=== PATIENT | male | born 1960 | race Caucasian/White ===

== ENCOUNTER 2017-05-05 05:05 | Inpatient (IN) ==
[2017-04-29 18:55] LABS: Appearance,Urine CLEAR; Bacteria,Urine 0 /hpf (0); Bilirubin,Urine NEG (NEG); Color,Urine STRAW; Glucose,Urine (UA) NEGATIVE (NEG); Leukocyte Esterase,Urine NEG /uL (NEG); Mucus,Urine FEW /hpf (0); Nitrate,Urine NEG (NEG); Protein,Urine NEG (NEG); Urine Blood 0.03 mg/dL (<0.03); Urine RBC 2 /hpf (0-1); Urine Squamous Epithelial Cell 0 /hpf (0-4); Urine WBC 0 /hpf (0-4); Urobilinogen,Urine NEG (NEG)
[2017-04-29 19:25] LABS: Basophils # (Auto) 0 K/mcL (0.0-0.3); Basophils % (Auto) 0.1 % (0.0-2.0); Eosinophils # (Auto) 0.2 K/mcL (0.0-0.7); Eosinophils % (Auto) 2.4 % (0.0-7.0); Granulocytes % (Auto) 61.8 % (38.0-78.0); Lymphocytes # (Auto) 2.7 K/mcL (1.5-4.8); Lymphocytes % (Auto) 29.6 % (15.5-49.0); Mean Cell Volume 85.1 fL (80.0-100.0); Mean Corpuscular HGB Conc 33.7 g/dL (31.0-36.0); Mean Corpuscular Hemoglobin 28.7 pg (26.0-34.0); Monocytes # (Auto) 0.5 K/mcL (0.1-0.9); Monocytes % (Auto) 6.1 % (1.0-12.0); Platelet Count 227 K/mcL (140-440); RBC 5.52 M/mcL (4.50-5.90); Red Cell Distribution Width 15.4 % (11.5-14.5)
[2017-04-29 19:37] LABS: Blood Urea Nitrogen 8 mg/dl (6-20)
[~2017-05-05 05:05] MED LIST: ACETAMINOPHEN 500 MG TABLET PO SCH; CELECOXIB 200 MG CAPSULE PO SCH; GABAPENTIN 300 MG CAPSULE PO SCH; ceFAZolin 1 GM VIAL IV SCH; oxyCODONE 10 MG TAB.ER.12H PO SCH
[2017-05-05] MEDS ORDERED: KETOROLAC 30 MG, ROPIVACAINE HCL/PF 49.5 ML, EPINEPHrine 0.5 MG, 0.9 % SODIUM CHLORIDE ... IJ SCH (06:30)
[2017-05-05] MEDS ORDERED: PHENYLEPHRINE 10 MG/ML VIAL IV ONE (07:45)
[2017-05-05] MEDS ORDERED: GLYCOPYRROLATE 0.2 MG/ML VIAL IV ONE (07:45)
[2017-05-05] MEDS ORDERED: LIDOCAINE HCL/PF 100 MG/5 ML SYRINGE IV ONE (07:45)
[2017-05-05] MEDS ORDERED: ROPIVACAINE HCL/PF 20 ML VIAL IJ ONE (07:45)
[2017-05-05] MEDS ORDERED: TRANEXAMIC ACID 1,000 MG/10 ML VIAL IV ONE ×2 (07:45→09:42)
[2017-05-05] MEDS ORDERED: ONDANSETRON 4 MG/2 ML VIAL IV ONE (07:45)
[2017-05-05] MEDS ORDERED: DEXAMETHASONE 10 MG/ML VIAL IV ONE (07:45)
[2017-05-05] MEDS ORDERED: MIDAZOLAM 5 MG/5 ML VIAL IV ONE (07:45)
[2017-05-05] MEDS ORDERED: PROPOFOL 200 MG/20 ML VIAL IV ONE (07:45)
[2017-05-05] MEDS ORDERED: GENTAMICIN SULFATE 800 MG/20 ML VIAL IR ONE (08:06)
[2017-05-05] MEDS ORDERED: BENZOCAINE/MENTHOL 1 LOZENGE PO PRN ×2 (08:53→09:42)
[2017-05-05] MEDS ORDERED: ePHEDrine 50 MG/ML AMPUL IV PRN (08:53)
[2017-05-05] MEDS ORDERED: METHOCARBAMOL 1,000 MG/10 ML VIAL IV PRN (08:53)
[2017-05-05] MEDS ORDERED: FLUMAZENIL 0.1 MG/ML ML IV PRN (08:53)
[2017-05-05] MEDS ORDERED: NALOXONE HCL 0.4 MG/ML VIAL IV PRN (08:53)
[2017-05-05] MEDS ORDERED: ATROPINE SULFATE 0.4 MG/ML VIAL IV PRN (08:53)
[2017-05-05] MEDS ORDERED: ONDANSETRON 4 MG/2 ML VIAL IV PRN ×2 (08:53→09:42)
[2017-05-05] MEDS ORDERED: HYDROmorphone 2 MG/ML SYRINGE IV PRN (08:53)
[2017-05-05] MEDS ORDERED: diphenhydrAMINE 50 MG/ML VIAL IV PRN (08:53)
[2017-05-05] MEDS ORDERED: IPRATROPIUM/ALBUTEROL 3 ML AMPUL.NEB NEB PRN (08:53)
[2017-05-05] MEDS ORDERED: METOPROLOL TARTRATE 5 MG/5 ML VIAL IV PRN (08:53)
[2017-05-05] MEDS ORDERED: fentaNYL 100 MCG/2 ML VIAL IV PRN (08:53)
[2017-05-05] MEDS ORDERED: LACTATED RINGERS 1,000 ML IV SCH (09:00)
[2017-05-05] MEDS ORDERED: ACETAMINOPHEN 325 MG TABLET PO PRN (09:42)
[2017-05-05] MEDS ORDERED: FLEETS ADULT ENEMA PR PRN (09:42)
[2017-05-05] MEDS ORDERED: MAGNESIUM HYDROXIDE 30 ML ORAL.SUSP PO PRN (09:42)
[2017-05-05] MEDS ORDERED: BISACODYL 10 MG SUPP.RECT PR PRN (09:42)
[2017-05-05] MEDS ORDERED: POLYETHYLENE GLYCOL 3350 17 GM PACKET PO PRN (09:42)
[2017-05-05] MEDS ORDERED: TEMAZEPAM 15 MG CAPSULE PO PRN (09:42)
--- NOTE | 2017-05-05 10:57 | XRay Report ---
HISTORY: Reason for Exam:Post-Op Total Knee FINDINGS: There is a well positioned total knee prosthesis. No fracture is present. There is air around the joint due to the surgical procedure. IMPRESSION: Well-positioned knee prosthesis Interpreted and Authenticated by: Eddie Hwang 05/05/17
--- NOTE | 2017-05-05 11:07 | Brief Operative Note ---
Date of procedure: 05/05/17 Pre-op diagnosis: right knee djd Post-op diagnosis: same Procedure: right tka with niya robot Grafts/Implants: Yes Anesthesia: GETA Complications Description: 05/05/17 11:07 none Surgeon: Robby Abraham [employer]ill Press Operator: Clark Muller Estimated blood loss (cc): 40 Tourniquet Time (Minutes): 65 Specimens Removed/Pathology: none sent Condition: stable Disposition: PACU
[2017-05-05] MEDS: 0.45 % SODIUM CHLORIDE 1,000 ML IV SCH ×2 (11:54→21:53)
[2017-05-05] MEDS: KETOROLAC 15 MG/ML VIAL IV SCH ×3 (11:54→23:32)
--- NOTE | 2017-05-05 12:07 | Operative Note ---
DATE OF OPERATION: 05/05/2017 PREOPERATIVE DIAGNOSIS: Right knee degenerative arthritis, severe through all three compartments. POSTOPERATIVE DIAGNOSIS: Right knee degenerative arthritis, severe through all three compartments. PROCEDURE: EDA robot Dewey total knee arthroplasty. SURGEON: Robby Abraham MD. MILL REPRESENTATIVE: Clark Muller PA-C. ANESTHESIA: General LMA anesthesia. TOTAL TOURNIQUET TIME: 65 minutes. IMPLANTS PLACED: Size 6 femur, size 6 tibial baseplate with a 9 mm poly insert with a 38 mm eccentric patella. BLOOD LOSS: About 40 mL. DESCRIPTION OF PROCEDURE: The patient was brought to the operating room and put to sleep with general LMA anesthesia. Once asleep, the patient had the right leg sterilely prepped and draped, confirmed as the operative side with a time out performed. Initials were present, and the incision line had already been drawn. We then sterilely prepped and draped the right lower extremity and then placed a nonsterile tourniquet. We draped the leg and then we made a midline incision. Once this was done, we then made a midline incision, a mid vastus approach performed, exposed the joint. Two pins above and below with the arrays were placed. We registered the intra-articular pins x2, the center of hip rotation. Osteophytes were removed, and we balanced the knee. We chose the size of implant which was size 6 for the femur and tibia. Once this had been done and rotation of the component, both femoral and tibial, had been set for alignment and for ligament laxity, we irrigated thoroughly and made our distal femoral cut after bring the robot in and registered. We made our posterior chamfer cut and then changed the saw blade. We made our anterior, posterior and anterior chamfer cuts, made our tibial cut and then removed osteophytes again, and bony fragments were removed. We then placed a size 6 tibial baseplate, punched into place with the appropriate external rotation using the robot. We irrigated thoroughly and then placed the femoral component. We set the medial and lateral alignment and then placed two peg holes. We then trialed the 9 poly and tested the ligament stability, both at 15 and 90 degrees which balanced equally just as planned. We then prepared the patella. It measured 28 mm of total thickness. This was cut to 18 mm. A 38 mm eccentric patella was used and drilled into place. We trialed the alignment which was excellent. We irrigated thoroughly and then cemented into place the above-mentioned sizes. We removed excess cement and kept the knee at 45 degrees until all cement had completely dried. We irrigated thoroughly again and then closed the mid vastus approach with #1 Stratafix x2 stitches which was woven through the repair. We irrigated and closed the skin with 2-0 Vicryl and adhesive closure. Blood loss was about 40 mL. There were no complications. RBH:lynn Job ID: [id number] Doc ID: [id number] Robby Abraham MD
[2017-05-05] MEDS: HYDROcodone/APAP 10/325MG TABLET PO PRN ×2 (12:42→19:32)
[2017-05-05] MEDS: 0.9 % SODIUM CHLORIDE 10 ML SYRINGE IV SCH ×2 (14:01→21:30)
[2017-05-05] MEDS: NICOTINE 21 MG PATCH TOPICAL SCH (14:20)
[2017-05-05] MEDS ORDERED: OXYCODONE HCL 5 MG PO SCH (15:00)
[2017-05-05] MEDS: GABAPENTIN 300 MG CAPSULE PO SCH ×2 (15:23→21:23)
[2017-05-05] MEDS: HYDROmorphone 2 MG/ML SYRINGE IV PRN ×3 (15:23→21:20)
[2017-05-05] MEDS: ceFAZolin 1 GM VIAL IV SCH ×2 (16:00→23:32)
[2017-05-05] MEDS: OMEPRAZOLE 20 MG CAPSULE PO SCH (17:30)
[2017-05-05] MEDS ORDERED: SENNOSIDES 1 TABLET PO SCH (21:00)
[2017-05-05] MEDS ORDERED: INSULIN GLARGINE, HUMAN 1 UNIT/0.01 ML SQ SCH (21:00)
[2017-05-05] MEDS ORDERED: SIMVASTATIN 10 MG TABLET PO SCH (21:00)
[2017-05-05] MEDS ORDERED: AMITRIPTYLINE 25 MG TABLET PO SCH (21:00)
[2017-05-05] MEDS: oxyCODONE 10 MG TAB.ER.12H PO SCH (21:22)
[2017-05-05] MEDS: ASPIRIN 325 MG ENTERIC COATED TABLET PO SCH (21:22)
[2017-05-05] MEDS: LISINOPRIL 20 MG TABLET PO SCH (21:23)
[2017-05-05] MEDS: DOCUSATE SODIUM 100 MG CAPSULE PO SCH (21:24)
[2017-05-06] MEDS: HYDROcodone/APAP 10/325MG TABLET PO PRN ×4 (00:16→13:42)
[2017-05-06] MEDS: HYDROmorphone 2 MG/ML SYRINGE IV PRN (03:14)
[2017-05-06] MEDS: KETOROLAC 15 MG/ML VIAL IV SCH ×2 (05:41→12:37)
[2017-05-06] MEDS: OMEPRAZOLE 20 MG CAPSULE PO SCH (07:11)
--- NOTE | 2017-05-06 07:37 | Orthopedic Progress Note ---
Subjective Patient information: Note initiated : 05/06/17 at 7:36 am Service Date, if different from initiated Date: [] Patient: Rhys Peres 57 y/o M admitted on 05/05/17 for Rt Total Knee Arthroplasty w/ Scar Robot *!staffing and scheduling coordinator!*. Chief Complaint: [Pt is stable this morning on post operative day 1 without any significant concerns or complaints. Patients vital signs have remained stable. Patients dressing is dry and exhibits a grossly intact neurovascular and neuromotor exam. Patients 10 point ROS is otherwise negative. ] Objective Vital signs: Vital Signs Temp Pulse Resp BP BP Pulse Ox 05/06/17 03:15 97.7 F 96 H 20 121/80 94 05/05/17 23:40 97.9 F 94 H 20 150/89 92 05/05/17 21:00 94 05/05/17 20:00 97.9 F 105 H 20 127/82 94 05/05/17 16:00 97.9 F 106 H 18 137/96 94 05/05/17 13:30 145/97 99 05/05/17 12:30 143/100 99 05/05/17 12:00 159/99 97 05/05/17 11:30 153/100 100 05/05/17 11:15 133/91 98 05/05/17 11:00 134/94 96 05/05/17 10:45 97.5 F 16 126/85 96 05/05/17 10:36 97.2 F 71 14 131/75 97 05/05/17 10:28 67 18 129/79 97 05/05/17 10:13 73 20 126/80 99 05/05/17 09:58 99.1 F H 86 10 L 122/72 96 Intake and Output 05/05/17 05/06/17 05/06/17 21:59 05:59 13:59 Intake Total 3258 / 3258 2700 / 2700 Output Total 1175 / 1175 2225 / 2225 Balance 2082 / 2082 475 / 475 Intake: IV 998 / 998 Sodium Chloride 0.45% 1, 998 / 998 000 ml @ 100 mls/hr IV . Q10H [facility], [facility] Rx#:[id number] Oral 2260 / 2260 2700 / 2700 Output: Void Amount 1175 / 1175 2225 / 2225 Other: Meal Dinner fruit cup Percent of Meal Consumed 100% 100% Feeding Ability Independent Independent # Voids 14 1 Weight 296 lb Intake & Output: Intake & Output 05/05/17 05/06/17 05/06/17 21:59 05:59 13:59 Intake Total 3258 / 3258 2700 / 2700 Output Total 1175 / 1175 2225 / 2225 Balance 2083 / 2083 475 / 475 Weight 296 lb Intake: IV 998 / 998 Sodium Chloride 0.45% 1, 998 / 998 000 ml @ 100 mls/hr IV . Q10H [facility] Rx#:[id number] Oral 2260 / 2260 2700 / 2700 Output: Void Amount 1175 / 1175 2225 / 2225 Other: Meal Dinner fruit cup Percent of Meal Consumed 100% 100% Feeding Ability Independent Independent # Voids 14 1 Incision: Yes healing Incision clean and dry: Yes Dressing: Yes clean Weight bearing status: full Neurological exam IM: Yes motor sensory intact, Yes neurovascular intact Extremities exam IM: Yes Foot pink and warm, Yes neurovascular intact - Labs CBC & BMP: 05/06/17 06:04 04/29/17 16:38 Labs: Orthopedic Labs 04/29/17 16:38 PT 13.0 INR 1.0 APTT 29 05/06/17 04/29/17 06:04 16:38 Hgb 15.8 Hct 38.6 L 47.0 Assessment and Plan (1) Hx of total knee arthroplasty Status: Acute (2) Osteoarthritis of right knee Status: Acute
--- NOTE | 2017-05-06 07:40 | Discharge Summary ---
Ortho Discharge - TKA - Patient Instructions Diet: Regular Diet Activity: activity as tolerated, weight bearing as tolerated Total Knee Protocol: For Total Knee: Start ROM TERRY with stationary bike or rocking chair. Work on gaining full extension of knee. Posterior dislocation precautions provided. Hip abductor strengthening and gait training instructions provided. Apply Cryocuff as instructed. Dressing Care: May shower in 2 days Patient Education: Total Knee Replacement (DC) Additional Instructions: [facility] [phone] APPOINTMENT: May 08 @ 1: 15pm. Please check in at 1:00 for paperwork. Bring your photo ID and insurance cards. Wear comforable clothes and consider taking pain medication 30 minutes prior. Your orders have been faxed to them. CPM for home use - Problem Maintenance (1) Hx of total knee arthroplasty Status: Acute (2) Osteoarthritis of right knee Status: Acute - Follow Up Plan Follow Up Appointments: Clark Muller PA-C [Physician [facility]rommel Tender] - 05/20/17 10:40 am Disposition: Home, Self-Care Prognosis: Good Rehab Potential: Good I certify that the patient requires SNF services: No Overall status at discharge: patient is progressing back to baseline - Orders For Discharge Prescriptions: Aspirin [Ecotrin] 325 mg PO BID #60 Docusate Sodium [Colace] 100 mg PO BID #60 capsule HYDROcodone/APAP 10/325MG [Zion 10/325Mg] 1 - 2 tab PO Q4HP PRN #75 tablet PRN Reason: Pain
[2017-05-06] MEDS: 0.45 % SODIUM CHLORIDE 1,000 ML IV SCH (07:41)
[2017-05-06] MEDS: 0.9 % SODIUM CHLORIDE 10 ML SYRINGE IV SCH ×2 (07:48→14:15)
[2017-05-06] MEDS: LISINOPRIL 20 MG TABLET PO SCH (08:49)
[2017-05-06] MEDS: oxyCODONE 10 MG TAB.ER.12H PO SCH (08:49)
[2017-05-06] MEDS: ASPIRIN 325 MG ENTERIC COATED TABLET PO SCH (08:50)
[2017-05-06] MEDS: GABAPENTIN 300 MG CAPSULE PO SCH ×2 (08:50→14:44)
[2017-05-06] MEDS: DOCUSATE SODIUM 100 MG CAPSULE PO SCH (08:51)
[2017-05-06] MEDS ORDERED: ASPIRIN 81 MG TAB.CHEW PO SCH (09:00)
[2017-05-06] MEDS ORDERED: PARoxetine 20 MG TABLET PO SCH (09:00)
[2017-05-06] MEDS ORDERED: CLOPIDOGREL 75 MG TABLET PO SCH (09:00)
[2017-05-06] MEDS ORDERED: HYDROCHLOROTHIAZIDE 25 MG TABLET PO SCH (09:00)
[2017-05-06] MEDS ORDERED: amLODIPine 5 MG TABLET PO SCH (09:00)
[2017-05-06] MEDS: NICOTINE 21 MG PATCH TOPICAL SCH (12:37)
== END 2017-05-06 15:40 | disposition home or self-care (01) | DRG 470 ==
LOC: MEDSUR 05:05
PROVIDERS: ADMIT Orthopaedic Surgery; ATTEND Orthopaedic Surgery